=== PATIENT | female | born 1975 | race Caucasian/White ===

== ENCOUNTER → 2022-07-10 07:57 | Outpatient (CLI) | payer OTHER, SELFPAY ==
--- NOTE | ~2022-07-10 | MMUS_ITS ---
EXAMINATION: MM diagnostic rowan BI w dilip, US breast BI complete HISTORY: Palpable left breast lump TECHNIQUE: Full field and spot ML, MLO and CC 3-D tomosynthesis images of both breasts were performed and synthetic 2-D images were generated. CAD analysis was submitted and interpreted. High resolution complete bilateral breast ultrasound including all 4 quadrants and subareolar areas was performed. COMPARISON: 01/30/2021 bilateral screening mammogram 06/28/2020 diagnostic right mammogram and right breast ultrasound 09/28/2019 bilateral mammogram] BREAST PARENCHYMAL COMPOSITION: The breasts are heterogeneously dense, which may obscure small masses . FINDINGS: MAMMOGRAPHIC FINDINGS: Right breast: Possible 1.3 cm mass anteriorly in the upper outer right breast (ML Tomosynthesis image 22/59). Asymmetry, possible architectural distortion in the lower outer right breast. Left breast: Approximately 2.7 x 3.1 cm upper outer left breast circumscribed mass with halo sign, likely benign c ysts (left ML Tomosynthesis image 14/60; left CC Tomosynthesis image 14/59). ULTRASOUND: Very dense echotexture of the breasts. No suspicious mass or shadowing of either breast is evident. Right breast: 9:00 5 cm from nipple: Parallel circumscribed 3.3 x 10 mm sonolucency consistent with simple cyst 11:00 7 cm from nipple: 5 x 3.9 mm cyst Left breast: 2:00 5 cm from nipple: 2.5 x 2.1 x 3.4 cm cyst with through transmission and posterior enhancement 3:00 5 cm from nipple: 7 x 11 x 8 mm simple cyst 1:00 9 cm from nipple: 3.5 x 4.8 x 4.7 mm parallel circumscribed hypoechoic lesion without internal v ascularity or suspicious shadowing 1:00 6 cm from nipple: 5 x 12 x 10 mm simple cyst IMPRESSION: 1. Benign findings 2. Routine mammographic screening is recommended BI-RADS Category 2: Benign finding(s). Reviewed, dictated and finalized at location A. IMPRESSION: 1. Benign findings 2. Routine mammographic screening is recommended BI-RADS Category 2: Benign finding(s).
== END ==
PROVIDERS: PCP Physician Assistant; Visit Provider Physician Assistant
DX: N63.25 Unspecified lump in the left breast, overlapping quadrants (principal)
CPT/HCPCS: 76641; 77062; 77066; G0279